=== PATIENT | male | born 1990 | race Hispanic/Latino ===

== ENCOUNTER 2020-03-25 10:42 | Emergency (ER) | payer OTHER, SELFPAY ==
--- NOTE | 2020-03-25 11:22 | EDPHYS ---
Physician Documentation [facility] Name: Arik Roque Age: 30 yrs Sex: Male : 1990 Arrival Date: 03/25/2020 Time: 10:46 Bed 14 Private MD: ED Physician Rikki Cline HPI: 03/25 11:01 This 30 yrs old Male presents to ER via Ambulatory with complaints of Spider rn Bite. 11:01 The patient presents with an abscess of the left medial ankle. Description: rn erythematous, swollen. Onset: The symptoms/episode began/occurred 2 week(s) ago. Possible cause(s): unknown. Modifying factors: the symptoms are alleviated by nothing, the symptoms are aggravated by touching. Severity of symptoms: At their worst the symptoms were mild, in the emergency department the symptoms are unchanged. The patient has experienced a previous episode. The patient has not recently seen a physician. Historical: - Allergies: 10:52 No Known Allergies; ll1 - PSHx: 10:52 None; ll1 - Immunization history:: Last tetanus immunization: < 5 years ago Flu vaccine is not up to date. - Social history:: Smoking status: Reported history of juuling and/or vaping. Patient/guardian denies using alcohol, street drugs. - Family history:: not pertinent. - Hospitalizations: : No recent hospitalization is reported. ROS: 11:01 Constitutional: Negative for fever, chills, and weight loss, Skin: + abscess to left rn inner ankle Exam: 11:01 Constitutional: This is a well developed, well nourished patient who is awake, alert, rn and in no acute distress. MS/ Extremity: Pulses equal, no cyanosis. NV intact. + 2cm area of erythema and fluctuance just proximal to left medial/superior ankle. FROM ankle without pain. Vital Signs: 10:51 BP 135 / 76; Pulse 80; Resp 16; Temp 98.2; Pulse Ox 100% ; Pain 7/10; ll1 Procedures: 11:20 I \T\ D: Incision and drainage was performed for an abscess of the left left leg Prepped rn with Betadine, Anesthetized with 3 ml's 1% Lidocaine. Incised with #11 blade. Drained small amount purulent fluid. serosanguinous fluid. Packed with iodoform gauze, Dressing: sterile 4x4 gauze, the patient tolerated the procedure well. MDM: 10:56 Patient medically screened. rn 11:20 Differential diagnosis: abscess, insect bite. Data reviewed: vital signs, nurses notes, rn and as a result, I will discharge patient. Counseling: I had a detailed discussion with the patient and/or guardian regarding: the historical points, exam findings, and any diagnostic results supporting the discharge/admit diagnosis, the need for outpatient follow up, to return to the emergency department if symptoms worsen or persist or if there are any questions or concerns that arise at home. Response to treatment: the patient's symptoms have mildly improved after treatment, and as a result, I will discharge patient. Special discussion: I discussed with the patient/guardian in detail that at this point there is no indication for admission to the hospital. It is understood, however, that if the symptoms persist or worsen the patient needs to return immediately for re-evaluation. 03/25 11:01 Order name: Incision \T\ Drainage Setup; Complete Time: 11:15 rn Administered Medications: 11:15 Drug: Lidocaine (1 %) 1 vials {Note: administered by Dr. Cline.} Volume: 5 ml; Route: jl7 Infiltration; 11:30 Follow up: Response: No adverse reaction jl7 Disposition: 03/25/20 11:22 Discharged to Home. Impression: Cutaneous abscess of left lower limb. - Condition is Stable. - Discharge Instructions: Skin Abscess, Incision and Drainage, Wound Packing, Incision and Drainage, Care After. - Prescriptions for Bactrim DS 800- 160 mg Oral Tablet - take 1 tablet by ORAL route every 12 hours for 10 days; 20 tablet. - Medication Reconciliation Form, Thank You Letter, Antibiotic Education, Prescription Opioid Use form. - Follow up: Roberto Guevara MD; When: As needed; Reason: Recheck today's complaints, Re-evaluation by your physician. - Problem is new. - Symptoms have improved. Signatures: Rikki Cline MD MD rn Leal, Jahala, RN RN jl7 Mp Costello RN RN ll1 Corrections: (The following items were deleted from the chart) 11:44 11:22 03/25/2020 11:22 Discharged to Home. Impression: Cutaneous abscess of left lower jl7 limb. Condition is Stable. Forms are Medication Reconciliation Form, Thank You Letter, Antibiotic Education, Prescription Opioid Use. Follow up: Roberto Guevara; When: As needed; Reason: Recheck today's complaints, Re-evaluation by your physician. Problem is new. Symptoms have improved. rn
--- NOTE | 2020-03-25 11:22 | ER ---
Nurse's Notes [facility] Name: Arik Roque Age: 30 yrs Sex: Male : 1990 Arrival Date: 03/25/2020 Time: 10:46 Bed 14 Private MD: Diagnosis: Cutaneous abscess of left lower limb Presentation: 03/25 10:51 Chief complaint: Patient states: Left ankle abscess for 3 days. Tried to dominique it ll1 himself yesterday. No drainage at this time. No fever. Coronavirus screen: Client denies travel out of the [place] in the last 14 days. At this time, the client does not indicate any symptoms associated with coronavirus-19. Ebola Screen: Patient denies travel to an Ebola-affected area in the 21 days before illness onset. Initial Sepsis Screen: Does the patient meet any 2 criteria? No. Patient's initial sepsis screen is negative. Risk Assessment: Do you want to hurt yourself or someone else? Patient reports no desire to harm self or others. Onset of symptoms was March 23, 2020. 10:51 Method Of Arrival: Ambulatory ll1 10:51 Acuity: IRAIS 4 ll1 Historical: - Allergies: 10:52 No Known Allergies; ll1 - PSHx: 10:52 None; ll1 - Immunization history:: Last tetanus immunization: < 5 years ago Flu vaccine is not up to date. - Social history:: Smoking status: Reported history of juuling and/or vaping. Patient/guardian denies using alcohol, street drugs. - Family history:: not pertinent. - Hospitalizations: : No recent hospitalization is reported. Screenin:00 Abuse screen: Denies threats or abuse. Denies injuries from another. Nutritional jl7 screening: No deficits noted. Tuberculosis screening: No symptoms or risk factors identified. Fall Risk None identified. Assessment: 11:00 General: Appears in no apparent distress. uncomfortable, Behavior is calm, cooperative, jl7 appropriate for age. Pain: Complains of pain in left leg Pain currently is 7 out of 10 on a pain scale. Neuro: Level of Consciousness is awake, alert, obeys commands, Oriented to person, place, time, situation. Cardiovascular: Patient's skin is warm and dry. Respiratory: Airway is patent Respiratory effort is even, unlabored, Respiratory pattern is regular, symmetrical. Derm: Skin is pink, warm \T\ dry. Abscess located on left leg is half dollar sized, is red, is raised. Vital Signs: 10:51 BP 135 / 76; Pulse 80; Resp 16; Temp 98.2; Pulse Ox 100% ; Pain 7/10; ll1 ED Course: 10:46 Patient arrived in ED. ds1 10:52 Triage completed. ll1 10:52 Arm band placed on Patient placed in an exam room, on a stretcher. ll1 10:56 Rikki Cline MD is Attending Physician. rn 11:00 Patient has correct armband on for positive identification. Bed in low position. Call jl7 light in reach. Side rails up X 1. 11:08 Florentin Merida RN is Primary Nurse. jl7 11:21 Roberto Guevara MD is Referral Physician. rn 11:32 Assist provider with I \T\ D: of an abscess on left anterior ankle Set up I\T\D tray. jl 7 Performed by Rikki Cline MD Wound packed. iodoform gauze, Dressing with 4X4s, Patient tolerated well. Patient did not have IV access during this emergency room visit. Administered Medications: 11:15 Drug: Lidocaine (1 %) 1 vials {Note: administered by Dr. Cline.} Volume: 5 ml; Route: jl7 Infiltration; 11:30 Follow up: Response: No adverse reaction jl7 Outcome: 11:22 Discharge ordered by . rn 11:44 Discharged to home ambulatory. jl7 11:44 Condition: stable 11:44 Discharge instructions given to patient, Instructed on discharge instructions, follow up and referral plans. medication usage, Demonstrated understanding of instructions, follow-up care, medications, Prescriptions given X 1. 11:44 Patient left the ED. jl7 Signatures: Marifer Rowe ds1 Rikki Cline MD MD rn Leal, Jahala, RN RN jl7 Mp Costello RN RN ll1
[2020-03-25 11:49] VITALS: BP 135/76; TEMP 98.2; O2SAT 100
== END 2020-03-25 11:44 | disposition home or self-care (01) ==
LOC: ER 10:42
PROC: 0J9P0ZZ Drainage of Left Lower Leg Subcutaneous Tissue and Fascia, Open Approach (ICD-10-PCS; principal; 2020-03-25)
DX: L02.416 Cutaneous abscess of left lower limb (principal)
CPT/HCPCS: 99283